=== PATIENT | female | born 1955 | race Two or more races ===

== ENCOUNTER 2017-09-29 08:54 | Inpatient (IN) | payer OTHER ==
[2017-09-29] MEDS ORDERED: Levofloxacin 500mg/100mL 500 MG/100 ML BAG IV ONE ×2 (09:23→09:44)
[2017-09-29] MEDS ORDERED: Aspirin 81mg Chewable Tab PO STA (09:23)
[2017-09-29] MEDS ORDERED: Aspirin 81mg Chewable Tab ONE (09:45)
[2017-09-29 09:50] LABS: % LYMPHOCYTES 25.5 % (20.0-50.0); % MONOCYTES 4.7 % (2.0-10.0); % NEUTROPHILS 66.8 % (40.0-80.0); BASOPHILE ABSOLUTE 0.1 Th/cumm (0-0.2); EOSINOPHILE ABSOLUTE 0.2 Th/cmm (0.1-0.4); HEMOGLOBIN 13.7 gm/dL (12-16); LYMPHOCYTE ABSOLUTE 2.7 Th/cmm (1.5-3.0); MEAN CELL VOLUME 91.6 fl (81-100); MEAN CORPUSCULAR HEMOGLOBIN 30.6 pg (27.0-31.0); MEAN CORPUSCULAR HGB CONC 33.4 pg (28.0-36.0); MEAN PLATELET VOLUME 7.8 fl; MONOCYTE ABSOLUTE 0.5 Th/cmm (0.3-1.0); PLATELET COUNT 406 Th/cmm (150-400); RED BLOOD COUNT 4.47 Mil/cmm (3.80-5.10); RED CELL DISTRIBUTION WIDTH 11.6 % (11.5-20.0); WHITE BLOOD COUNT 10.5 Th/cmm (4.8-10.8)
[2017-09-29 09:59] LABS: INR 0.98 (0.5-1.4); PROTHROMBIN TIME (TEST) 10.2 SECONDS (9.5-11.5)
--- NOTE | 2017-09-29 10:02 | Diagnostic Imaging Report ---
Portable chest x-ray Time: 0932 hours History: Pain Allowing for portable technique the heart size is normal. No focal pulmonary parenchymal processes. No hilar or mediastinal abnormalities. Impression: No acute abnormalities.
[2017-09-29 10:05] LABS: ALB/GLOB RATIO 1.4 (1.0-1.8); ALBUMIN 4.5 gm/dL (3.7-5.3); ALKALINE PHOSPHATASE 83 U/L (34-104); ANION GAP 12.6 (7.0-16.0); BILIRUBIN,TOTAL 0.5 mg/dL (0.3-1.0); BUN - UREA NITROGEN 14 mg/dL (7-25); CALCIUM SERUM 9.9 mg/dL (8.6-10.3); CARBON DIOXIDE 23.5 mEq/L (21.0-31.0); CHLORIDE 104 mEq/L (98-107); CREATININE - SERUM 0.7 mg/dL (0.6-1.2); CREATININE KINASE 107 U/L (30-223); GFR AFRICAN-AMERICAN > 60.0 ml/min (>90); GFR NON AFRICAN-AMERICAN > 60.0 ml/min; GLUCOSE 115 mg/dL (70-105); POTASSIUM SERUM 3.1 mEq/L (3.5-5.1); SGOT 55 U/L (13-39); SGPT/ALT 88 U/L (7-52); SODIUM SERUM 137 mEq/L (136-145); TOTAL PROTEIN,SERUM 7.8 gm/dL (6.0-8.3)
[2017-09-29 10:13] LABS: TROP I < 0.01 ng/mL (0.01-0.05)
--- NOTE | 2017-09-29 10:58 | ED Physician Chart ---
ED Chief Complaint/HPI - Patient Information Date Seen:: 09/29/17 Time Seen:: 09:15 Chief Complaint:: Chest Pain History of Present Illness:: onset x 2 days of intermittent, localized, pleuritic/exertional chest pain with dyspnea, cough,fever, and congestion; pt denies trauma, H/As, neck pain, Abd. pain, S/T, A/N/V/D/C, chills, or urinary s/s Allergies:: Allergies Allergy/AdvReac Type Severity Reaction Status Date / Time No Known Allergies Allergy Verified 09/29/17 09:17 Vitals:: Vital Signs - 8 hr 09/29/17 09/29/17 09:17 10:24 Temp 98.5 F HR 88 85 RR 16 16 BP 128/78 138/76 O2 Sat % 97 98 Historian:: Patient Review:: Nurse's Note Reviewed ED Review of Systems - Review of Systems General/Constitutional: Fever, No chills, No weight loss, No weakness, No diaphoresis, No edema, No loss of appetite Skin: No skin lesions, No rash, No bruising Head: No headache, No light-headedness Eyes: No loss of vision, No pain, No diplopia ENT: No earache, No nasal drainage, No sore throat, No tinnitus Neck: No neck pain, No swelling, No thyromegaly, No stiffness, No mass noted Cardio Vascular: Chest pain, No palpitations, No PND, No orthopnea, No edema Pulmonary: SOB, Cough, No sputum, No wheezing GI: No nausea, No vomiting, No diarrhea, No pain, No melena, No hematochezia, No constipation, No hematemesis G/U: No dysuria, No frequency, No hematuria, No nacturia Timers Inspector: No vaginal discharge, No abnormal vaginal bleed, No contraction Musculoskeletal: No bone or joint pain, No back pain, No muscle pain Endocrine: No polyuria, No polydipsia Psychiatric: No prior psych history, No depression, No anxiety, No suicidal ideation, No homicidal ideation, No auditory hallucination, No visual hallucination Hematopoietic: No bruising, No lymphadenopathy Allergic/Immuno: No urticaria, No angioedema Neurological: No syncope, No focal symptoms, No weakness, No paresthesia, No headache, No seizure, No dizziness, No confusion, No vertigo ED Past Medical History - Past Medical History Obtainable: Yes Past Medical History: HTN Family History: HTN Social History: Non Smoker, No Alcohol, No Drug Use, Surgical History: Hysterectomy Psychiatricy History: None Medication: Reviewed Family Medical History - Family Member Sister Living Status: Other Medical History: ca ED Physical Exam - Physical Examination General/Constitutional: Awake, Well-developed, well-nourished, Alert, No distress, GCS 15, Non-toxic appearing, Ambulatory Head: Atraumatic Eyes: Lids, conjuctiva normal, PERRL, EOMI Skin: Nl inspection, No rash, No skin lesions, No ecchymosis, Well hydrated, No lymphadenopathy ENMT: External ears, nose nl, TM canals nl, Nasal exam nl, Lips, teeth, gums nl , Oropharynx nl, Tonsils nl Neck: Nontender, Full ROM w/o pain, No JVD, No nuchal rigidity, No bruit, No mass, No stridor Respiratory: Nl effort/Exclusion Other Respiratory comments:: Lungs: + Rales and Rhonchi Cardio Vascular: RRR, No murmur, gallop, rubs, NL S1 S2, Carotid/Femoral/Distal pulses equal bilaterally GI: No tenderness/rebounding/guarding, No organomegaly, No hernia, Normal BS's, Nondistended, No mass/bruits, No McBurney tenderness : No CVA tenderness Extremities: No tenderness or effusion, Full ROM, normal strength in all extremities, No edema, Normal digits & nails Neuro/Psych: Alert/oriented, DTR's symmetric, Normal sensory exam, Normal motor strength, Judgement/insight normal, Mood normal, Normal gait, No focal deficits Misc: Normal back, No paraspinal tenderness ED Labs/Radiology/EKG Results - Lab Results Results: Laboratory Tests 09/29/17 09/29/17 09/29/17 09:36 09:36 09:36 WBC 10.5 RBC 4.47 Hgb 13.7 Hct 41.0 MCV 91.6 MCH 30.6 MCHC Differential 33.4 RDW 11.6 Plt Count 406 H MPV 7.8 Neutrophils % 66.8 Lymphocytes % 25.5 Monocytes % 4.7 Eosinophils % 2.0 Basophils % 1.0 PT 10.2 INR 0.98 PTT (Actin FS) 23.5 L Sodium 137 Potassium 3.1 L Chloride 104 Carbon Dioxide 23.5 Anion Gap 12.6 BUN 14 Creatinine 0.7 Est GFR ( Amer) > 60.0 Est GFR (Non-Af Amer) > 60.0 BUN/Creatinine Ratio 20.0 Glucose 115 H Whole Bld Lactic Acid Calcium 9.9 Total Bilirubin 0.5 AST 55 H ALT 88 H Alkaline Phosphatase 83 Creatine Kinase 107 Troponin I Total Protein 7.8 Albumin 4.5 Globulin 3.3 Albumin/Globulin Ratio 1.4 09/29/17 09:36 WBC RBC Hgb Hct MCV MCH MCHC Differential RDW Plt Count MPV Neutrophils % Lymphocytes % Monocytes % Eosinophils % Basophils % PT INR PTT (Actin FS) Sodium Potassium Chloride Carbon Dioxide Anion Gap BUN Creatinine Est GFR ( Amer) Est GFR (Non-Af Amer) BUN/Creatinine Ratio Glucose Whole Bld Lactic Acid 1.81 Calcium Total Bilirubin AST ALT Alkaline Phosphatase Creatine Kinase Troponin I < 0.01 L Total Protein Albumin Globulin Albumin/Globulin Ratio Comments:: K=: 3.1 - Radiology Results Comments:: ? RML Patchy Infiltrate - EKG Interpretations EKG Time:: 09:32 Rate & Rhythm: 82; NSR Comments:: non-specific st-t changes ED Septic Shock - . Is Septic Shock (SBP<90, OR Lactate>4 mmol\L) present?: No - <6hrs of presentation: Vital Signs: Vital Signs - 8 hr 09/29/17 09/29/17 09:17 10:24 Temp 98.5 F HR 88 85 RR 16 16 BP 128/78 138/76 O2 Sat % 97 98 ED Reassessment (Disposition) - Reassessment Reassessment Condition:: Improved - Diagnosis Diagnosis:: Cough; Congestion; Chest Pain; PNA; Bronchitis; Fever; Sepsis; Chest Pain; Dyspnea; Angina Pectoris; Hypokalemia - Aftercare/Follow up Instructions Aftercare/Follow-Up Instructions:: Counseled pt regarding lab results/diagnosis & need follow up, Counseled pt & family regarding lab results/diagnosis & need follow up - Patient Disposition Discharge/Transfer:: Acute Care w/in this hosp Accepting Physician:: Dr. Gillis Time Called:: 1030 Time Responded:: 10:30 Admitted to:: Telemetry Spoke to:: Dr. Gillis Admitting Medical Physician:: Dr. Gillis Condition at Disposition:: Stable, Improved
[2017-09-29] MEDS ORDERED: Potassium Chloride 20 mEq ER Tab PO ONE (11:03)
[2017-09-29 11:59] VITALS: BP 153/69
[2017-09-29] MEDS ORDERED: guaiFENesin 200 MG/10 ML UDC PO PRN (12:28)
[2017-09-30] MEDS ORDERED: Levothyroxine 0.075 Mg Tab PO SCH ×2 (07:30)
[2017-09-30] MEDS ORDERED: Non-Formulary Item 1 EA (Hydrochlorothiazide [Hydrochlorothiazide] 12.5 MG) PO SCH (09:00)
--- NOTE | 2017-09-30 17:11 | Consultation ---
DATE OF CONSULTATION: 09/29/2017 PATIENT OF: Dr. Gillis. Thank you very much Dr. Gillis for this consultation. HISTORY OF PRESENT ILLNESS: This is a 62-year-old female who was admitted for chest congestion and tightness upon deep breathing and coughing and some phlegm production for the past couple of days. The patient had a chest x-ray, which was negative. Started on IV antibiotics, nebulizer treatment, has improved since. The congestion has almost resolved. The patient wants to go home. Apparently scheduled to go home today. The patient denies any history of lung problems in the past, asthma, or emphysema specifically and she is nonsmoker. PAST MEDICAL HISTORY: As above. SOCIAL HISTORY: As above. REVIEW OF SYSTEMS: GENERAL: Weakness, fatigue. CARDIOVASCULAR: No chest pain. RESPIRATORY: Some congestion and cough. GASTROINTESTINAL: No nausea or vomiting. PHYSICAL EXAMINATION: GENERAL: Awake, alert, not in acute distress. VITAL SIGNS: Temperature is 97.5, pulse 76, respiration 18, blood pressure 153/69, saturation 97%. HEENT: Atraumatic and normocephalic. Pupils are equal and reactive to light and accommodation. Ears, nose and throat normal. NECK: Supple. No JVD. CHEST: There are good breath sounds. No wheezing, rhonchi, or crackles. Few rhonchi. HEART: Regular. ABDOMEN: Soft. EXTREMITIES: No edema. IMPRESSION: This 62-year-old female with acute bronchitis. PLAN: The patient is going home today. We will continue antibiotics at home. Follow up with primary care physician. Refer to me as an outpatient if needed. JOB# [id number]
--- NOTE | 2017-10-03 21:29 | History & Physical ---
ADMIT DATE: 09/29/2017 HISTORY OF PRESENT ILLNESS: The patient was admitted at [facility] on 09/29/2017 and the patient came in with up to 2-day onset of nausea, vomiting, exertional chest pain, and cough with congestion and the patient was seen in the Emergency Room and was admitted. REVIEW OF SYSTEMS: Difficult to obtain. PAST MEDICAL HISTORY: History of hypertension. PHYSICAL EXAMINATION: GENERAL: On examination, awake and alert, well-nourished, female patient. VITAL SIGNS: Normal. HEAD: Normal. ENT: Normal. NECK: Supple, nontender. LUNGS: Clear. CARDIOVASCULAR SYSTEM: S1, S2 heard. ABDOMEN: Soft. Bowel sounds are heard. CENTRAL NERVOUS SYSTEM: Grossly normal. LABORATORY DATA: White count was 7.5, hemoglobin 13.7. Electrolytes, potassium was 3.1. I reviewed the Emergency Room notes and the Radiology, chest x-ray showed some possible infiltrates in the right middle lobe. The patient was given IV antibiotics. DIAGNOSES: Cough, chest congestion, possible pneumonia, bronchitis, rule out sepsis, rule out angina pectoris, hypokalemia. PLAN: The patient is being admitted. I will follow the patient. Continue antibiotics IV. I will also have Dr. Wasserman, Pulmonary consult her. JOB# [id number]
== END 2017-09-29 21:00 | disposition home or self-care (01) | DRG 193 ==
LOC: ER 08:54 → MSI 10:59 → TELE 16:43
PROVIDERS: ADMIT Internal Medicine; ATTEND Internal Medicine
DX: J18.9 Pneumonia, unspecified organism (principal); A41.9 Sepsis, unspecified organism; J20.9 Acute bronchitis, unspecified; I10 Essential (primary) hypertension; E87.6 Hypokalemia; I20.9 Angina pectoris, unspecified; Z90.710 Acquired absence of both cervix and uterus; Z82.49 Family history of ischemic heart disease and other diseases of the circulatory system
CPT/HCPCS: 36415-UA; 71045-TC; 80053-TC; 82550-TC; 83605; 84484-TC; 85025-TC; 85610-TC; 85730-TC; 93005; J1956; Z7610